=== PATIENT | female | born 1980 | race Caucasian/White ===

== ENCOUNTER 2019-01-04 09:39 | Day surgery (SDC) | payer OTHER ==
[2019-01-01 10:44] LABS: HEMATOCRIT 38.5 % (36.0-47.0); HEMOGLOBIN 13.1 g/dL (12.0-15.5); MEAN CORPUSCULAR HEMOGLOBIN 29.5 pg (27.0-33.4); MEAN CORPUSCULAR HGB CONC 33.9 g/dL (32.0-36.0); MEAN CORPUSCULAR VOLUME 87 fl (80-97); PLATELET COUNT 258 10^3/uL (150-450); RED BLOOD COUNT 4.42 10^6/uL (3.72-5.28); RED CELL DISTRIBUTION WIDTH 13.3 % (11.5-14.0); WHITE BLOOD COUNT 7.5 10^3/uL (4.0-10.5)
[2019-01-01 10:58] LABS: APPEARANCE,URINE SLIGHTLY-CLOUDY; BILIRUBIN,URINE NEGATIVE (NEGATIVE); COLOR,URINE YELLOW; GLUCOSE, URINE NEGATIVE (NEGATIVE); KETONES,URINE NEGATIVE (NEGATIVE); LEUKOCYTE ESTERASE,URINE NEGATIVE (NEGATIVE); NITRITE,URINE NEGATIVE (NEGATIVE); PROTEIN,URINE NEGATIVE (NEGATIVE); URINE SPECIFIC GRAVITY 1.015; UROBILINOGEN,URINE NEGATIVE mg/dL (<2.0)
[~2019-01-04 09:39] MED LIST: LACTATED RINGERS 1000 ML IV PRN; LIDOCAINE 0.5% INJ-PF (5 MG/ML) 50 ML SDV SUBCUT PRN
[2019-01-04] MEDS ORDERED: KETAMINE HCL INJ 500 MG/10 ML VIAL ONE (10:28)
[2019-01-04] MEDS ORDERED: FENTANYL CITRATE INJ/PF 100 MCG/2 ML AMPUL ONE ×2 (10:28→11:28)
[2019-01-04] MEDS ORDERED: MIDAZOLAM 2 MG/2 ML INJ ONE (10:29)
[2019-01-04] MEDS ORDERED: PROPOFOL INJ 200 MG/20 ML VIAL IV ONE ×2 (10:29)
[2019-01-04] MEDS ORDERED: FENTANYL CITRATE INJ/PF 100 MCG/2 ML AMPUL IV PRN ×3 (11:24)
[2019-01-04] MEDS ORDERED: DIPHENHYDRAMINE HCL 50 MG/ML VIAL IV PRN (11:24)
[2019-01-04] MEDS ORDERED: MORPHINE SULFATE 10 MG/ML INJ IV PRN (11:24)
[2019-01-04] MEDS ORDERED: MEPERIDINE HCL/PF INJ 25 MG/1 ML DISP.SYRIN IV PRN (11:24)
[2019-01-04] MEDS ORDERED: PROMETHAZINE HCL INJ 25 MG/1 ML VIAL IV PRN ×2 (11:24)
[2019-01-04] MEDS ORDERED: MORPHINE SULFATE 10 MG/ML INJ IM PRN (11:42)
[2019-01-04] MEDS ORDERED: IBUPROFEN 800 MG TABLET PO PRN (11:42)
[2019-01-04] MEDS ORDERED: OXYCODONE-ACETAMINOPHEN 5-325 MG TABLET PO PRN ×2 (11:42→11:43)
[2019-01-04 12:52] VITALS: BP 124/60
--- NOTE | 2019-01-04 13:09 | OPERATIVE REPORT E ---
Operative Report NAME: JON MARIA : 1980 AGE: 38Y DATE OF SURGERY: 01/04/2019 ROOM: PREOPERATIVE DIAGNOSIS: ABNORMAL UTERINE BLEEDING. POSTOPERATIVE DIAGNOSIS: ABNORMAL UTERINE BLEEDING. OPERATION: HYSTEROSCOPE WITH MYOSURE. SURGEON: EASTON ELIZONDO M.D. ANESTHESIA: Dr. Jeong, LMAC. COMPLICATIONS: None. ESTIMATED BLOOD LOSS: 10 mL. SPECIMENS REMOVED: Endometrial curettings. PROCEDURE: The patient was taken to the operating room and prepared and draped in normal sterile fashion in dorsal lithotomy position. Under sterile conditions, in and out catheterization was performed for approximately 10 mL of clear urine. A sterile speculum was placed into the vagina and the cervix was grasped on the anterior lip with a single-tooth tenaculum. The cervix was then dilated to accommodate the 5 mm MyoSure camera, which was introduced without difficulty. The findings included long finger-like projections of endometrium, very fluffy and proliferative, definitely with pedicles attaching themselves to the posterior endometrial cavity. These did not look like carlos beefy red polyps, but were more white in appearance, but otherwise benign. There was no evidence of malignancy noted with these findings. The MyoSure device was then introduced and these polyps were removed using the MyoSure without difficulty. After adequately removing the samples, we removed the MyoSure camera and device. I then did two scrapings to ensure that we had thoroughly investigated the cavity. This was passed off with the specimens as well. At this point, the procedure was concluded. The sponge, lap, and needle counts were correct x2. The patient was taken to recovery in stable condition. DICTATING PHYSICIAN: EASTON ELIZONDO M.D. [id number] PHY#: [id number] ID: [id number] JOB#: [id number] ACCT: [id number] cc:AESTON ELIZONDO M.D. >
[2019-01-04] MEDS ORDERED: ONDANSETRON HCL INJ/PF 4 MG/2 ML SDV ONE (18:14)
[2019-01-04] MEDS ORDERED: GLYCOPYRROLATE 1 MG/5 ML VIAL ONE (18:14)
[2019-01-04] MEDS ORDERED: KETOROLAC TROMETHAMINE 60 MG/2 ML SDV ONE (18:14)
== END 2019-01-04 12:45 | disposition home or self-care (01) ==
LOC: OROUT 09:39
PROVIDERS: ATTEND Obstetrics & Gynecology
DX: N84.0 Polyp of corpus uteri (principal); N93.9 Abnormal uterine and vaginal bleeding, unspecified
CPT/HCPCS: 36415; 85027; 81025; 81001; 88305 ×2; 00952; 58558; J2250; J1885; J3010; J3490 ×2; J2405; J2704; 952